=== PATIENT | female | born 1945 | race Caucasian/White ===

== ENCOUNTER → 2016-04-26 | Outpatient (REF) | LOC: ZLAB.WCH 14:42 | DX: Z01.89 Encounter for other specified special examinations (principal) ==

== ENCOUNTER 2019-04-10 21:18 | Inpatient (IN) | payer MEDICARE, OTHER ==
[~2019-04-10] VITALS: Ht 167.6 cm; Wt 84.2 kg
[2019-04-10 23:17] VITALS: O2SAT 98
[2019-04-10 23:22] VITALS: BP 161/90; PULSE 102; TEMP 98
[2019-04-10] MEDS ORDERED: AMITRIPTYLINE H25 M1 PO (23:34)
[2019-04-10] MEDS ORDERED: AMITRIPTYLINE H25 M1 (23:35)
[2019-04-10] MEDS ORDERED: KEVEYIS50 MG PO (23:39)
[2019-04-10] MEDS ORDERED: ULTRAM 50MG TAB50 MG PO (23:41)
[2019-04-10] MEDS ORDERED: BENADRYL50 MG PO (23:43)
[2019-04-10] MEDS ORDERED: NEURONTIN400 MG/CAP PO (23:45)
[2019-04-11] VITALS (724 sets, daily range): BP systolic 132–171; BP diastolic 76–96; PULSE 91–123; TEMP 97.3–98.6; O2SAT 88–100
[2019-04-11] MEDS ORDERED: VOLTAREN 50MG T50 MG PO (00:36)
[2019-04-11] MEDS ORDERED: XANAX 0.5MG0.5 MG PO (00:39)
[2019-04-11 01:09] LABS: TROPONIN-I 0.023 ng/mL (0.000-0.035)
[2019-04-11 03:06] LABS: ARTERIAL BLD GAS O2 SATURATION 95.8 % (92-100); ARTERIAL BLOOD GAS BASE EXCESS 1.8 (-2-2); ARTERIAL BLOOD GAS HCO3 26.7 meq/L (22-26); ARTERIAL BLOOD GAS PCO2 42.8 mmHg (35-45); ARTERIAL BLOOD GAS PO2 75.4 mmHg (80-100); ARTERIAL BLOOD GAS pH 7.41 (7.35-7.45)
--- NOTE | 2019-04-11 05:20 | NUR ---
Bedside report received from TANYA Cloud. Patient care received. Patient awake and resting in bed; no complaints at this time.
--- NOTE | 2019-04-11 06:14 | NUR ---
Vancomycin Initial Dosing Pharmacy Note Ordering provider: Abrahan Carpio MD Indication/duration: PNA Relevant comorbidities: LABS: PENDING Recommendation: vancomycin 17 mg/kg Loading dose: 2 grams Maintenance dose: 1.5 grams every 12 hours Trough goal: 15-20 ug/mL. Trough 04/12/19 @1230
[2019-04-11 06:25] LABS: ALBUMIN 4.1 gm/dL (3.5-5.0); BILIRUBIN,TOTAL 0.4 mg/dL (0.0-1.0); CALCIUM 9.1 mg/dL (8.4-10.2); CREATININE, serum 0.85 (0.52-1.25); POTASSIUM 4.2 mmol/L (3.4-5.0); TOTAL PROTEIN 6.9 gm/dL (6.4-8.2)
[2019-04-11 06:33] LABS: TROPONIN-I 0.03 ng/mL (0.000-0.035)
[2019-04-11 07:25] LABS: BASO # 0.1 (0.0-0.2); BASO % 1.2 % (0.0-2.0); EOS # 0.1 (0.0-0.7); EOS % 1.1 % (0-4.0); GRAN # 5.3 (1.4-6.5); GRAN % 65.7 % (42.2-75.2); HEMATOCRIT 42.4 % (37.0-47.0); HEMOGLOBIN 13.8 g/dl (12.5-16.0); LYMPH # 1.9 (1.2-3.4); LYMPH % 23.2 % (20.0-51.0); MEAN CELL VOLUME 96 fl (80.0-100.0); MEAN CORPUSCULAR HEMOGLOBIN 31 pg (27.0-31.0); MEAN CORPUSCULAR HGB CONC 33 g/dl (33.0-37.0); MEAN PLATELET VOLUME 9.9 fl (7.4-10.4); MONO # 0.7 (0.1-0.6); MONO % 8.7 % (1.7-9.3); PLATELET COUNT 149 K/mm3 (130-400); RED BLOOD COUNT 4.42 M/mm3 (4.10-5.30); REDCELL DISTRIBUTION WIDTH-CV 13.2 % (11.5-14.5)
--- NOTE | 2019-04-11 07:30 | NUR ---
Bedside shift report received from TANYA Burgos. Full assessment completed. Patient has no complaints or concerns at this time. Call light placed within reach. Bed in lowest position. Side rails up x3.
--- NOTE | 2019-04-11 10:11 | NUR ---
Initial visit; Patient thanked Geospatial Information Scientist for looking in on her and offering God's blessings.
--- NOTE | 2019-04-11 14:42 | NUR ---
Sr Community Manager met with patient and patient's , Swapnil (ph#[phone]) to discuss discharge planning. Patient lives in [place] with her and sees Dr. Gomez Gaona for primary care. Patient has medications delivered to her home from [facility] in [place], but also utilizes [facility] as needed. Patient has canes at home, but does not have to use them often. Patient reports independence with ADLS. Patient's , Swapnil provided a copy of patient's DPOA-HC paperwork, which SW placed on patient chart. Patient plans to return home upon discharge. SW to continue to follow as needed.
--- NOTE | 2019-04-11 15:53 | NUR ---
Dr. Wang notified of patient's tachycardia. Dr. Wang states to turn off nitroglycerine gtt at this time.
--- NOTE | 2019-04-11 19:10 | NUR ---
recieved bedside report from TANYA Jones at this time.
--- NOTE | 2019-04-11 19:10 | NUR ---
Bedside shift report given to TANYA Crespo at this time. Patient has no complaints or concerns. Bed in lowest position, side rails up x3, call light within reach.
[2019-04-12] VITALS (328 sets, daily range): BP systolic 129–159; BP diastolic 62–85; PULSE 87–115; TEMP 97.4–98.5; O2SAT 86–100
[2019-04-12 07:03] LABS: CALCIUM 9.6 mg/dL (8.4-10.2); CREATININE, serum 1.1 (0.52-1.25); MAGNESIUM 2.1 mg/dL (1.6-2.3); POTASSIUM 3.9 mmol/L (3.4-5.0)
[2019-04-12 07:15] LABS: BASO # 0.1 (0.0-0.2); BASO % 1.3 % (0.0-2.0); EOS # 0.2 (0.0-0.7); EOS % 2.7 % (0-4.0); GRAN # 3.1 (1.4-6.5); GRAN % 48.9 % (42.2-75.2); HEMATOCRIT 41.7 % (37.0-47.0); HEMOGLOBIN 13.7 g/dl (12.5-16.0); LYMPH # 2.1 (1.2-3.4); LYMPH % 33.9 % (20.0-51.0); MEAN CELL VOLUME 96 fl (80.0-100.0); MEAN CORPUSCULAR HEMOGLOBIN 32 pg (27.0-31.0); MEAN CORPUSCULAR HGB CONC 33 g/dl (33.0-37.0); MEAN PLATELET VOLUME 9.7 fl (7.4-10.4); MONO # 0.8 (0.1-0.6); MONO % 12.7 % (1.7-9.3); PLATELET COUNT 131 K/mm3 (130-400); RED BLOOD COUNT 4.33 M/mm3 (4.10-5.30); REDCELL DISTRIBUTION WIDTH-CV 13.2 % (11.5-14.5)
[2019-04-12 08:12] LABS: MUCOUS Present /lpf; PH 5 (5-8); SQUAMOUS EPITHELIAL 0-2 /hpf; URINE APPEARANCE Clear; URINE BACTERIA None Seen /hpf; URINE BILIRUBIN Negative (NEGATIVE); URINE BLOOD Negative (NEGATIVE); URINE COLOR Yellow; URINE GLUCOSE Negative (NEGATIVE); URINE KETONE Negative (NEGATIVE); URINE LEUKOCYTE ESTERASE Negative (NEGATIVE); URINE NITRATE Negative (NEGATIVE); URINE PROTEIN(semi-quant) Negative (NEGATIVE); URINE RBC None Seen /hpf; URINE UROBILINOGEN Negative (NEGATIVE)
[2019-04-12 10:06] LABS: COLLECTION METHOD CLEAN CATCH
--- NOTE | 2019-04-12 21:28 | NUR ---
GAVE REPORT TO TANYA PERALTA. PATIENT IS GOING TO ROOM 347.
[2019-04-13] VITALS (7 sets, daily range): BP systolic 139–155; BP diastolic 74–88; PULSE 84–113; TEMP 97.7–98.6
--- NOTE | 2019-04-13 05:00 | NUR ---
Call from ICU Shake Table Operator with report of a-fib with RVR. Patient resting in bed with eyes closed-sleeping. Vital signs-BP 151/86, pulse 106, O2 saturation 98% on RA, resp-20. Denies chest pain, shortness of breath or nausea. States she had finally fallen asleep and started dreaming and was very angry at her and yelling at him. States it woke her up but she fell asleep again. Order placed for STAT EKG per protocol. Cardiopulm notified of order.
--- NOTE | 2019-04-13 05:35 | NUR ---
EKG complete. Notified Dr Wang of change in rhythm. No new orders received.
--- NOTE | 2019-04-13 08:00 | NUR ---
Sitting up in bed without complaint. States has a dry cough. Denies shortness of breath. Heart rate irregular in 110's.
[2019-04-13 08:28] LABS: BASO # 0.1 (0.0-0.2); BASO % 1.1 % (0.0-2.0); EOS # 0.2 (0.0-0.7); EOS % 2.4 % (0-4.0); GRAN # 4.8 (1.4-6.5); GRAN % 58.2 % (42.2-75.2); HEMATOCRIT 45.6 % (37.0-47.0); HEMOGLOBIN 14.9 g/dl (12.5-16.0); LYMPH # 2.3 (1.2-3.4); LYMPH % 27.8 % (20.0-51.0); MEAN CELL VOLUME 96 fl (80.0-100.0); MEAN CORPUSCULAR HEMOGLOBIN 31 pg (27.0-31.0); MEAN CORPUSCULAR HGB CONC 33 g/dl (33.0-37.0); MEAN PLATELET VOLUME 9.7 fl (7.4-10.4); MONO # 0.8 (0.1-0.6); MONO % 10.1 % (1.7-9.3); PLATELET COUNT 166 K/mm3 (130-400); RED BLOOD COUNT 4.75 M/mm3 (4.10-5.30); REDCELL DISTRIBUTION WIDTH-CV 13.2 % (11.5-14.5)
[2019-04-13 08:55] LABS: ALBUMIN 4.6 gm/dL (3.5-5.0); BILIRUBIN,TOTAL 0.7 mg/dL (0.0-1.0); CALCIUM 9.9 mg/dL (8.4-10.2); CREATININE, serum 1.13 (0.52-1.25); MAGNESIUM 2.3 mg/dL (1.6-2.3); POTASSIUM 3.8 mmol/L (3.4-5.0); TOTAL PROTEIN 7.9 gm/dL (6.4-8.2)
--- NOTE | 2019-04-13 18:30 | NUR ---
New medications started per credit union examiner today. Ambulatory in halls with family. No complaints.
[2019-04-14 04:00] VITALS: BP 135/66; PULSE 76; TEMP 97.9
--- NOTE | 2019-04-14 04:30 | NUR ---
Rested well this shift. Has denied pain/shortness of breath/nausea. Has remained NPO since midnight. Denies needs. Call light in reach. Will monitor.
[2019-04-14 07:37] VITALS: BP 132/71; PULSE 72; TEMP 97.4
[2019-04-14 07:39] LABS: BASO # 0.1 (0.0-0.2); EOS # 0.2 (0.0-0.7); EOS % 2.8 % (0-4.0); GRAN # 4.3 (1.4-6.5); GRAN % 52.8 % (42.2-75.2); HEMATOCRIT 44.2 % (37.0-47.0); HEMOGLOBIN 14.5 g/dl (12.5-16.0); LYMPH # 2.7 (1.2-3.4); LYMPH % 32.9 % (20.0-51.0); MEAN CELL VOLUME 96 fl (80.0-100.0); MEAN CORPUSCULAR HEMOGLOBIN 32 pg (27.0-31.0); MEAN CORPUSCULAR HGB CONC 33 g/dl (33.0-37.0); MEAN PLATELET VOLUME 9.8 fl (7.4-10.4); MONO # 0.8 (0.1-0.6); PLATELET COUNT 165 K/mm3 (130-400); RED BLOOD COUNT 4.59 M/mm3 (4.10-5.30); REDCELL DISTRIBUTION WIDTH-CV 13.2 % (11.5-14.5)
[2019-04-14 07:41] LABS: ALBUMIN 4.4 gm/dL (3.5-5.0); BILIRUBIN,TOTAL 0.7 mg/dL (0.0-1.0); CALCIUM 9.6 mg/dL (8.4-10.2); CREATININE, serum 1.24 (0.52-1.25); MAGNESIUM 2.4 mg/dL (1.6-2.3); POTASSIUM 3.7 mmol/L (3.4-5.0); TOTAL PROTEIN 7.7 gm/dL (6.4-8.2)
[2019-04-14] MEDS ORDERED: ELIQUIS 5MG PO (10:17)
[2019-04-14] MEDS ORDERED: CARDIZEM 60MG T60 MG PO (10:18)
[2019-04-14] MEDS ORDERED: COREG 6.256.25 MG/TA PO (10:18)
[2019-04-14] MEDS ORDERED: LASIX 20MG TABL20 MG PO (10:19)
[2019-04-14] MEDS ORDERED: PROAIR HFA0.09 MG/AC IH (10:37)
[2019-04-14 11:35] VITALS: BP 125/69; PULSE 79; TEMP 98.3
--- NOTE | 2019-04-14 11:38 | NUR ---
The patient is to discharge back home with her today, 04/14. SW met with the patient and her family and presented and explained the IM form. The patient verbalized understanding, signed, and she was provided a copy. No additional needs at this time.
--- NOTE | 2019-04-14 12:30 | NUR ---
PATIENT DISCHARGING HOME. GAVE DISCHARGE INSTRUCTIONS, PRESCRIPTIONS SENT ELECTRONICALLY & FOLLOW UP APT WITH PCP. CARDS OFFICE TO CALL PATIENT FOR F/U APT. DC'D INT'S X3, COVERED WITH GAUZE & COBAN. PATIENT GETTING DRESSED AND WILL DISCHARGE.
--- NOTE | 2019-04-14 13:15 | NUR ---
PATIENT CALLED OUT REPORTING SHE FEELS DIZZY AND LIKE SHE HAS A MIGRAINE STARTING. PATIENT REPORTS SHE TAKES XANAX AT HOME FOR HER MIGRAINES. CHECKED VITALS, ALL VSS. TALKED WITH HOSPITALIST MIDLEVEL. PATIENT INSTRUCTED TO TAKE HOME DOSE OF XANAX AT HOME AND FOLLOW UP WITH PCP. PATIENT ATE LUNCH AND WILL DISCHARGE.
--- NOTE | 2019-04-14 14:00 | NUR ---
PATIENT DISCHARGING HOME VIA WC WITH FAMILY TO PERSONAL VEHICLE. SEE DISCHARGE ORDERS.
== END 2019-04-14 14:00 | disposition home or self-care (01) | DRG 280 ==
LOC: MEDICAL 21:18 → ICU 22:58 → SURG 04-12 22:10
PROVIDERS: Family Medicine; Nurse Practitioner Family; ADMIT Internal Medicine
DX: I16.0 Hypertensive urgency (principal); J18.9 Pneumonia, unspecified organism; I21.A1 Myocardial infarction type 2; J96.01 Acute respiratory failure with hypoxia; I50.31 Acute diastolic (congestive) heart failure; G90.50 Complex regional pain syndrome I, unspecified; I11.0 Hypertensive heart disease with heart failure; I48.91 Unspecified atrial fibrillation; G43.909 Migraine, unspecified, not intractable, without status migrainosus; R91.1 Solitary pulmonary nodule; R00.0 Tachycardia, unspecified; Z79.891 Long term (current) use of opiate analgesic
CPT/HCPCS: 99223-AI; 99233-AI; J1650; J1940; J1956; J2543; J3370; J7040; Q9967

== ENCOUNTER → 2020-03-11 | Outpatient (CLI) | payer MEDICARE, OTHER ==
[~2020-03-11] MED LIST: AMITRIPTYLINE H25 M1; AMITRIPTYLINE H25 M1 PO; BENADRYL50 MG PO; CARDIZEM 60MG T60 MG PO; COREG 6.256.25 MG/TA PO; ELIQUIS 5MG PO; ISORDIL TITRADO30 MG PO; KEVEYIS50 MG PO; LASIX 20MG TABL20 MG PO; NEURONTIN400 MG/CAP PO; PROAIR HFA0.09 MG/AC IH; ULTRAM 50MG TAB50 MG PO; VOLTAREN 50MG T50 MG PO; XANAX 0.5MG0.5 MG PO; XARELTO20 MG PO
== END ==
LOC: COL.PUL 07:30
DX: R06.09 Other forms of dyspnea (principal)

== ENCOUNTER → 2020-07-28 | Outpatient (CLI) | payer MEDICARE, OTHER | LOC: COL.PUL 07:25 | DX: R06.09 Other forms of dyspnea (principal) ==

== ENCOUNTER → 2020-10-13 | Outpatient (CLI) | payer MEDICARE, OTHER ==
--- NOTE | 2020-10-13 08:25 | NUR ---
EXERCISE OXIMETRY WAS ORDERED FOR PATIENT BY DR. VITALE WITH DIAGNOSIS OF DYSPNEA ON EXERTION. PATIENT ON ROOM AIR SITTING 0800 SPO2 97 HEART RATE 74. PATIENT ON ROOM AIR STANDING SPO2 95 HEART RATE 75. 0808 PATIENT AMBULATORY ON ROOM AIR SPO2 95 HEART RATE 99. 0811 PATIENT AMBULATORY ON ROOM AIR SPO2 91 HEART RATE 100. 0813 PATIENT AMBULATORY ON ROOM AIR SPO2 93 HEART RATE 91. PATIENT WALKED UP AND DOWN HALLWAY MULTIPLE TIMES WITHOUT STOPPING FOR A TOTAL OF 13 MIN. NO OXYGEN WAS NEEDED DURING EXERCISE OIXMETRY PATIENT SPO2 STAYED ABOVE 88%
== END ==
LOC: COL.PUL 07:43
DX: J45.909 Unspecified asthma, uncomplicated (principal)